=== PATIENT | male | born 1955 | race Caucasian/White ===

== ENCOUNTER 2017-01-24 15:25 | Emergency (ER) | payer BC ==
[~2017-01-24] VITALS: Ht 167.6 cm; Wt 69.4 kg
[2017-01-24 15:27] VITALS: TEMP 36.6; Ht 167.6 cm; Wt 69.4 kg
--- NOTE | 2017-01-24 16:05 | DIAGNOSTIC IMAGING REPORT ---
NASAL BONES MIN 3 VIEWS CLINICAL HISTORY: Nose bleed, trauma yesterday pain COMPARISON STUDY: No previous studies for comparison. FINDINGS: There is no evidence of orbital emphysema. No nasal bone fractures are visualized. There are no air-fluid levels within the next sinuses. IMPRESSION: No nasal bone fractures identified. Electronically signed by: Davion Ferrara M.D. 01/24/2017 4:04 PM Dictated Date/Time: 01/24/2017 4:03 PM
[2017-01-24] MEDS ORDERED: FLUT0.15 NAE (16:16)
[2017-01-24] MEDS ORDERED: IBUP-103 PO (16:16)
[2017-01-24] MEDS ORDERED: CYAN100020 PO (16:16)
[2017-01-24] MEDS ORDERED: MULT-506 PO (16:16)
[2017-01-24] MEDS ORDERED: CYCL0.052 OPB (16:16)
[2017-01-24 16:28] VITALS: BP 147/102; PULSE 50; O2SAT 98
--- NOTE | 2017-01-25 01:01 | EMERGENCY ROOM VISIT NOTE ---
ED Visit Note First contact with patient: 15:42 Chief Complaint: I've been bleeding from the right nostril for the last 1-1/2 hours. History of Present Illness: Mr. Salazar is a 61-year-old white male who ambulates into the ED accompanied by his complaining of a right-sided nosebleed. Patient reports just today he was playing soccer and was accidentally elbowed in the nose which drove his glasses into his nasal bones. He reports at that time he didn't have loss of consciousness but he did sustain a soft tissue injury and had no bleeding. Today while at rest he had a spontaneous onset of right nostril bleeding. This is lasted for the last hour and a half by the time he arrived in the emergency department had subsided. He did contact his PCP who encouraged him to come emergency department for x- rays. Currently he is having no symptoms and denies headache, dizziness, lightheadedness, visual changes, hearing changes, neck pain, chest pain, shortness of breath, abdominal pain, nausea, vomiting, difficulty breathing through his nose, other nasal bleeds, blood thinner use. Review of Systems: As noted above in history of present illness. 8 body systems were reviewed and found to be negative as noted above. Past Medical History: Chronic dry eye, seasonal allergies. Current Medications: Medications Dose Route/Sig Max Daily Dose Days Date Category Restasis (Cyclosporine (Ophth)) 0.05 % Emu 1 Drop OPB BID 01/24/17 Reported Advil (Ibuprofen) 200 Mg Tab 400 Mg PO Q6H PRN 01/24/17 Reported Flonase Allergy Relief (Fluticasone Propionate (Nasal)) 50 Mcg/Act Spr 2 Sprays TREVOR DAILY PRN 01/24/17 Reported Vitamin B12 (Cyanocobalamin) 1,000 Mcg Tab 1,000 Mcg PO DAILY 01/24/17 Reported Multivitamin (Multivitamins) Tab 1 Tab PO DAILY 01/24/17 Reported Allergies to Medications: Patient denies. Social History: Patient is currently employed; he feels safe in his home environment; he denies tobacco use and admits to social alcohol use. Tetanus Immunization Status: Patient reports up-to-date. Physical Examination: Vital Signs: Date Time Temp Pulse Resp B/P (MAP) Pulse Ox O2 Delivery O2 Flow Rate FiO2 01/24/17 16:28 50 18 147/102 98 01/24/17 15:27 36.6 63 18 160/112 97 Room Air GENERAL: 61-year-old male in no acute distress, nontoxic-appearing, afebrile and hemodynamically stable. NEUROLOGICAL: Awake, alert and oriented to person, place and time. Answering questions appropriately and following commands. Normal gait. Good hand eye coordination. SKIN: Warm, dry and pink. Nose: Over the bridge of the nose patient has a subcentimeter superficial laceration. HEENT: Skull: Atraumatic and normocephalic. No raccoon's eyes or quinonez signs. Face: Soft tissue injury as noted above. No nasal deformity and mild tenderness over the right nasal bone. Nares are patent. No active bleeding. On visual inspection there is scant blood in the right nostril with mild edema and no bleeding from the left. No other facial tenderness or swelling. PERRLA. EOMI without nystagmus. Sclera white and conjunctiva pink. No malocclusion. No intraoral trauma. There is a small amount of blood in the posterior pharyngeal area. Airway is patent. Speech is normal. ED Course: Patient is assesse as noted above. Patient's medication list was reviewed. Nasal X-Rays: Were read by myself and the radiologist and shows no acute fractures. Patient is educated about today's findings and instructed on his treatment plan ; he verbalizes understanding and agreement with this plan. Clinical Impression: Epistaxis, resolved. Superficial nasal laceration Disposition: Patient discharged home in stable condition accompanied by his ; prior to departure he was reassessed and subjectively reported he was feeling much better and had no return of bleeding. Plan: She was educated on Actiq to control bleeding. Patient is encouraged to follow-up with his PCP as needed. Patient was encouraged return ED for uncontrolled nasal bleeding, lightheadedness, dizziness or any new/concerning symptoms.
== END 2017-01-24 16:29 | disposition home or self-care (01) ==
LOC: C.EDB 15:26 → C.EDD 16:29
DX: R04.0 Epistaxis (principal); S00.30XA Unspecified superficial injury of nose, initial encounter; W50.0XXA Accidental hit or strike by another person, initial encounter; Y92.322 Soccer field as the place of occurrence of the external cause